=== PATIENT | female | born 1955 | race Caucasian/White ===

== ENCOUNTER 2017-04-13 03:37 | Emergency (ER) | payer SELFPAY ==
[~2017-04-13] VITALS: Ht 160 cm; Wt 66.2 kg
[2017-04-13 03:42] VITALS: Ht 160 cm; Wt 66.2 kg
[2017-04-13 04:35] LABS: BASOPHIL % 0.5 % (0-2); PLATELET COUNT 373 x10^3mcL (130-400); RED CELL DISTRIBUTION WIDTH 14.1 % (11.5-14.5)
[2017-04-13 04:59] LABS: SODIUM SERUM 144 mmol/L (136-145)
[2017-04-13 05:00] LABS: ALBUMIN 3.8 g/dL (3.4-5.0); CARBON DIOXIDE 23.8 mmol/L (21-32); CHLORIDE SERUM 107 mmol/L (98-107); CREATININE SERUM 0.6 mg/dL (0.6-1.0); GFR1 > 60 mL/min; GLUCOSE SERUM 110 mg/dL (74-106); TOTAL PROTEIN, SERUM 7.8 g/dL (6.4-8.2)
[2017-04-13 05:03] LABS: ALKALINE PHOSPHATASE 91 U/L (46-116); ALT/SGPT 24 U/L (14-59); AST/SGOT 25 U/L (15-37)
[2017-04-13 05:04] LABS: BILIRUBIN TOTAL 0.48 mg/dL (0.20-1.00); CALCIUM 8.5 mg/dL (8.5-10.1)
[2017-04-13 06:00] VITALS: BP 119/84
[2017-04-13 06:10] LABS: POTASSIUM SERUM 2.9 mmol/L (3.5-5.1)
== END 2017-04-13 06:00 | disposition home or self-care (01) ==
LOC: ED 03:37
PROVIDERS: Emergency Medicine
DX: F41.9 Anxiety disorder, unspecified (principal); I10 Essential (primary) hypertension; J45.909 Unspecified asthma, uncomplicated
CPT/HCPCS: 36415; Q0092

== ENCOUNTER 2017-04-23 07:46 | Emergency (ER) | payer MEDICAID ==
[~2017-04-23] VITALS: Ht 157.5 cm; Wt 65.3 kg
[2017-04-23 07:52] VITALS: BP 138/90; Ht 157.5 cm; Wt 65.3 kg
== END 2017-04-23 08:36 | disposition home or self-care (01) ==
LOC: ED 07:46
DX: F41.9 Anxiety disorder, unspecified (principal); G47.00 Insomnia, unspecified; I10 Essential (primary) hypertension; J45.909 Unspecified asthma, uncomplicated